=== PATIENT | male | born 1965 | race Caucasian/White ===

== ENCOUNTER → 2016-11-25 | Outpatient (CLI) | payer BC, OTHER ==
[~2016-11-25] VITALS: Ht 180.3 cm; Wt 117.9 kg
[~2016-11-25] MED LIST: CINN500T PO; FISH1000 PO; LIDOCAINE 2% INJ 100 MG/5 ML SDV (FOR ANES.) As Ordered ONE; MULT1TAB10 PO; NAPR500T3 PO; NS 1,000 ML IV ONE; POTA75TA PO; POTASSIUM; PROPOFOL 200 MG/20 ML VIAL As Ordered ONE; VITA-108
--- NOTE | 2016-11-25 14:46 | ROOR ---
Patient Name: Misael Bejarano Procedure Date: 11/25/2016 2:26 PM Date of : 1965 Age: 51 Room: [facility] Gender: Male Note Status: Finalized Procedure: Total Colonoscopy to Cecum Indications: High risk colon cancer surveillance: Personal history of adenoma with villous component Providers: Erasmo Yun MD Referring MD: THUAN ZAMORA JR, MD Requesting Provider: Medicines: Monitored Anesthesia Care Complications: No immediate complications. Procedure: Pre-Anesthesia Assessment: - The heart rate, respiratory rate, oxygen saturations, blood pressure, adequacy of pulmonary ventilation, and response to care were monitored throughout the procedure. The Colonoscope was introduced through the anus and advanced to the cecum, identified by appendiceal orifice and ileocecal valve. The colonoscopy was performed without difficulty. The patient tolerated the procedure well. The quality of the bowel preparation was excellent. Findings: The perianal and digital rectal examinations were normal. Non-bleeding internal hemorrhoids were found during retroflexion. The hemorrhoids were small and Grade I (internal hemorrhoids that do not prolapse). No other significant abnormalities were identified in a careful examination of the remainder of the colon. The exam was otherwise without abnormality on direct and retroflexion views. Impression: - Non-bleeding internal hemorrhoids. - The examination was otherwise normal on direct and retroflexion views. - No specimens collected. - The exam was otherwise normal to the cecum. Recommendation: - Patient has a contact number available for emergencies. The signs and symptoms of potential delayed complications were discussed with the patient. Return to normal activities tomorrow. Written discharge instructions were provided to the patient. - High fiber diet. - Discharge patient to home. - Continue present medications. - Repeat colonoscopy in 5 years for surveillance. - Return to referring physician. - The findings and recommendations were discussed with the patient's family. Erasmo Yun MD Erasmo Yun MD 11/25/2016 2:45:40 PM This report has been signed electronically. Number of Addenda: 0 Note Initiated On: 11/25/2016 2:26 PM Estimated Blood Loss: Estimated blood loss: none.
[2016-11-25 15:15] VITALS: BP 145/91
== END | disposition home or self-care (01) ==
LOC: M OPP 13:10
PROVIDERS: ATTEND Internal Medicine Gastroenterology
DX: Z09 Encounter for follow-up examination after completed treatment for conditions other than malignant neoplasm (principal); D49.0 Neoplasm of unspecified behavior of digestive system; Z86.010 Personal history of colon polyps; K64.0 First degree hemorrhoids; Z79.899 Other long term (current) drug therapy

== ENCOUNTER 2017-08-20 13:27 | Emergency (ER) | payer OTHER, BC ==
[2017-08-20] MEDS: IBUPROFEN 600 MG TAB PO (14:30)
== END 2017-08-20 15:51 | disposition home or self-care (01) ==
LOC: M ED 13:27
DX: M25.562 Pain in left knee (principal)
CPT/HCPCS: 73564

== ENCOUNTER → 2019-06-27 | Outpatient (CLI) | payer BC, OTHER ==
[~2019-06-27] MED LIST changes: -LIDOCAINE 2% INJ 100 MG/5 ML SDV (FOR ANES.) As Ordered ONE; +NAPR-837 PO; +NAPR-885 PO; -NAPR500T3 PO; -NS 1,000 ML IV ONE; -PROPOFOL 200 MG/20 ML VIAL As Ordered ONE
--- NOTE | 2019-06-27 17:13 | REP ---
Clinical: Foreign body . Comparison: None . Technique: PA and lateral. Findings: The mediastinum and cardiac silhouette are normal. The lung marroquin are clear and without acute consolidation, effusion, or pneumothorax. The skeletal structures are intact and normal. Impression: 1. No acute cardiopulmonary process. Scattered calcified granulomata noted. 2. No foreign body identified. Electronically Signed by Mckinley Amado MD 06/27/2019 05:05 P
--- NOTE | 2019-06-27 17:15 | REP ---
Clinical: Foreign body. Technique: AP views of the neck, abdomen, and pelvis. Findings: No foreign body identified. Examination is unremarkable. Impression: No foreign body. Electronically Signed by Mckinley Amado MD 06/27/2019 05:06 P
== END ==
LOC: M ADAMS 16:46
PROVIDERS: ATTEND Nurse Practitioner Family
DX: T18.2XXA Foreign body in stomach, initial encounter (principal)

== ENCOUNTER → 2022-06-10 | Outpatient (CLI) | payer BC, OTHER ==
[~2022-06-10] MED LIST changes: +MELO15TA28
== END ==
LOC: M LABSMTC 09:54
PROVIDERS: ATTEND Anesthesiology
DX: Z01.818 Encounter for other preprocedural examination (principal)

== ENCOUNTER 2022-06-15 08:01 | Day surgery (SDC) | payer BC, OTHER ==
[~2022-06-15] VITALS: Ht 180.3 cm; Wt 118.8 kg
[~2022-06-15 08:01] MED LIST changes: +LIDOCAINE 2% 100MG/5ML SDV (FOR ANES.) As Ordered ONE; +NS 1,000 ML IV ONE; +propofoL 200 MG/20 ML VIAL As Ordered ONE
[2022-06-15] MEDS ORDERED: VITMTA PO (08:20)
[2022-06-15 09:45] VITALS: BP 191/91
== END 2022-06-15 09:53 | disposition home or self-care (01) ==
LOC: M OPP 08:01
PROVIDERS: ATTEND Internal Medicine Gastroenterology
DX: Z12.11 Encounter for screening for malignant neoplasm of colon (principal); Z86.010 Personal history of colon polyps; K57.30 Diverticulosis of large intestine without perforation or abscess without bleeding; K64.0 First degree hemorrhoids; Z79.1 Long term (current) use of non-steroidal anti-inflammatories (NSAID)

== ENCOUNTER → 2023-04-01 | Outpatient (REF) | payer OTHER ==
[~2023-04-01] MED LIST changes: -LIDOCAINE 2% 100MG/5ML SDV (FOR ANES.) As Ordered ONE; -NS 1,000 ML IV ONE; +VITMTA PO; -propofoL 200 MG/20 ML VIAL As Ordered ONE
[2023-04-01 13:21] LABS: INR 1.07; PROTHROMBIN TIME 13.6 SECONDS (12.5-14.5)
[2023-04-01 13:22] LABS: PARTIAL THROMBOPLASTIN TIME 26.1 SECONDS (24.8-34.2)
== END ==
LOC: M LAB REF 11:55
PROVIDERS: ATTEND Internal Medicine
DX: Z01.810 Encounter for preprocedural cardiovascular examination (principal)

== ENCOUNTER → 2023-06-04 | Outpatient (REF) | payer OTHER | LOC: M LABDRWAD 13:03 | PROVIDERS: ATTEND Nurse Practitioner Family | DX: Z96.652 Presence of left artificial knee joint (principal) ==

== ENCOUNTER → 2025-04-26 | Outpatient (CLI) | payer OTHER ==
[2025-04-26 17:06] LABS: BASO # 0.0 10^3/uL (0.0-0.2); BASO % 0.4 % (0.0-1.0); EOS # 0.2 10^3/uL (0.0-0.5); EOS % 2.8 % (0.0-3.0); LYMPH # 2.7 10^3/uL (1.5-5.0); LYMPH % 39.5 % (24.0-44.0); MONO # 1.0 10^3/uL (0.0-0.8); MONO % 15.0 % (2.0-8.0); NEUTROPHILS # 2.9 10^3/uL (1.5-8.5); NEUTROPHILS % 42.2 % (36.0-66.0); PLATELET COUNT, AUTOMATED 277 10^3/uL (150-450)
[2025-04-26 17:07] LABS: IRON (FE) 111 UG/DL (65-175)
[2025-04-26 17:08] LABS: ALT/SGPT 45 U/L (7.0-40); AST/SGOT 25 U/L (<34); CALCIUM LEVEL 9.3 MG/DL (8.3-10.6); CARBON DIOXIDE LEVEL 28 MMOL/L (20-31); CHLORIDE LEVEL 105 MMOL/L (98-107); CREATININE FOR GFR 0.73 MG/DL (0.70-1.30); GLOMERULAR FILTRATION RATE > 90.0 (>49); PERCENT SATURATION 31.6 % (19.7-50.0); POTASSIUM SERUM 4.9 MMOL/L (3.5-5.1); SODIUM LEVEL 141 MMOL/L (136-145)
[2025-04-26 17:52] LABS: INR 0.97
== END ==
LOC: M LABDRWAD 11:50
PROVIDERS: ATTEND Orthopaedic Surgery
DX: Z01.818 Encounter for other preprocedural examination (principal); M25.561 Pain in right knee

== ENCOUNTER → 2025-05-02 | Outpatient (CLI) | payer BC | LOC: M WUC 13:36 | PROVIDERS: ATTEND Physician Assistant Medical | DX: M54.50 Low back pain, unspecified (principal); M47.816 Spondylosis without myelopathy or radiculopathy, lumbar region ==